=== PATIENT | female | born 1975 | race Caucasian/White ===

== ENCOUNTER → 2016-11-05 | Outpatient (CLI) | payer OTHER ==
--- NOTE | 2016-11-05 14:33 | DI ---
Indication: ITS.REASON: BIOLOGIC MEDICATION CHEST, PA LATERAL: Comparison: None Technique: PA and lateral view Findings: Patient showed normal heart, mediastinum and central vascularity. Lungs are clear. No acute bony findings seen. Impression: Unremarkable two-view chest. .
== END ==
LOC: IMA 11:48
PROVIDERS: ATTEND Physician Assistant
DX: L40.0 Psoriasis vulgaris (principal); Z51.81 Encounter for therapeutic drug level monitoring; Z79.899 Other long term (current) drug therapy
CPT/HCPCS: 36415; 86480